=== PATIENT | male | born 1945 | race Caucasian/White ===

== ENCOUNTER 2019-06-29 13:00 | Emergency (ER) | payer MEDICARE ==
[2019-06-29 14:26] LABS: APPEARANCE,URINE Clear (CLEAR); BILIRUBIN,URINE Negative (NEGATIVE); COLOR,URINE Dark Yellow (YELLOW); GLUCOSE, URINE (UA) Negative (NEGATIVE); KETONES,URINE Negative (NEGATIVE); LEUKOCYTE ESTERASE ,URINE Trace (NEGATIVE); NITRATE,URINE Negative (NEGATIVE); OCCULT BLOOD,URINE Negative (NEGATIVE); PH,URINE 5.5 (5.0-8.0); PROTEIN,URINE Negative (NEGATIVE); UROBILINOGEN,URINE 0.2 mg/dL (0.2-1.0)
[2019-06-29 14:44] LABS: BACTERIA,URINE Rare /HPF (None Seen); MUCUS,URINE Few LPF (None Seen); RBC,URINE 0-1 /HPF (0-1); SQUAMOUS EPITHELIAL CELL,UR Rare /HPF (0-2); WBC,URINE 0-1 /HPF (0-1)
== END 2019-06-29 16:46 | disposition home or self-care (01) ==
LOC: EDH 13:00
DX: R33.9 Retention of urine, unspecified (principal); I10 Essential (primary) hypertension; I48.91 Unspecified atrial fibrillation
CPT/HCPCS: 51702; 81001

== ENCOUNTER 2019-08-06 10:00 | Observation (INO) | payer MEDICARE ==
[2019-08-03 11:13] LABS: BASOPHILS % (AUTO) 0.7 % (0.0-5.0); EOSINOPHILS % (AUTO) 2.3 % (0.0-8.0); HEMATOCRIT 44.5 % (42-54); LYMPHOCYTES % (AUTO) 27.9 % (21.0-51.0); MEAN CORPUSCULAR HEMOGLOBIN 29.7 pg (27.0-33.0); MEAN CORPUSCULAR HGB CONC 33.7 g/dL (32.0-36.0); MEAN CORPUSCULAR VOLUME 88.1 fL (79-99); MONOCYTES % (AUTO) 12.5 % (3.0-13.0); NEUTROPHILS % (AUTO) 56.2 % (40.0-77.0); PLATELET COUNT (AUTO) 172 K/uL (130-400); RED BLOOD CELL COUNT(AUTO) 5.05 MIL/uL (4.50-6.20); RED CELL DISTRIBUTION WIDTH 13.6 % (11.0-15.5); WHITE BLOOD COUNT (AUTO) 5.6 K/uL (4.8-10.8)
[2019-08-03 11:22] VITALS: BP 142/79
[2019-08-03 11:31] LABS: CREATININE 0.8 mg/dL (0.5-1.5); POTASSIUM 3.8 mmol/L (3.5-5.1)
[2019-08-03 11:33] LABS: INR 1.79 (0.85-1.15); PROTHROMBIN TIME 18.4 SEC (9.6-11.6)
[2019-08-03 12:18] LABS: APPEARANCE,URINE CLOUDY (CLEAR); BILIRUBIN,URINE NEGATIVE (NEGATIVE); COLOR,URINE YELLOW (YELLOW); GLUCOSE, URINE (UA) NEGATIVE (NEGATIVE); KETONES,URINE NEGATIVE (NEGATIVE); LEUKOCYTE ESTERASE ,URINE MODERATE (NEGATIVE); NITRATE,URINE POSITIVE (NEGATIVE); OCCULT BLOOD,URINE LARGE (NEGATIVE); PH,URINE 5.5 (5.0-8.0); PROTEIN,URINE 100 mg/dL (NEGATIVE); UROBILINOGEN,URINE 0.2 mg/dL (0.2-1.0)
[2019-08-03 13:11] LABS: BACTERIA,URINE Many /HPF (None Seen); CALCIUM OXALATE CRYSTALS,UR Few /LPF (None Seen); SQUAMOUS EPITHELIAL CELL,UR Rare /HPF (0-2); WBC,URINE 51-100 /HPF (0-1)
--- NOTE | 2019-08-03 15:30 | NUR ---
ekg informed dr. ruano of ekg. orders received to call pts pcp in [place] and follow his recommendations in regards to ekg.
--- NOTE | 2019-08-04 16:09 | NUR ---
EKG CALLED DR. Sanam COLBY TO INFORM OF EKG. OFFICE CLOSED, LEFT MESSAGE TO CALL ME BACK.
--- NOTE | 2019-08-05 08:34 | NUR ---
EKG PANTERA FREEMAN ON PHONE. INFORMED OF PTS EKG AND Faxed. SHE WILL INFORM DR. COLBY
--- NOTE | 2019-08-05 08:35 | NUR ---
EKG PANTERA MONTAÑO ON PHONE. STATES PER DR. COLBY, PT CAN PROCEED WITH PLANNED PROCEDURE. NO RECOMMENDATIONS GIVEN ABOUT EKG. DR GARCIA MADE AWARE
--- NOTE | 2019-08-05 08:35 | NUR ---
EKG DR. GARCIA NOTIFIED OF EKG. REQUESTING A RECOMMENDATION FROM DR. COLBY IN REGARDS TO EKG.
--- NOTE | 2019-08-05 17:07 | NUR ---
CALLED DR. ESCOBEDO OFFICE REPORTED ABNORMAL LABS SPOKE WITH CRISTELA PER DR. ESCOBEDO NO NEW ORDERS
[~2019-08-06] VITALS: Ht 188 cm; Wt 130.0 kg
[2019-08-06] VITALS (19 sets, daily range): BP systolic 114–150; BP diastolic 70–91
[2019-08-06] MEDS: CEFTRIAXONE SODIUM 1 GM IVP SCH ×2 (06:00→13:00)
[~2019-08-06 10:00] MED LIST: BIOTIN PO; CYAN100022 SL; DIGO125T71 PO; DILT120T15 PO; GENTAMICIN SULFATE IV SCH; MAGN400T53 PO; MVI PO; SODIUM CHLORIDE 0.9% IV SCH; TAMS-1 PO; WARF-57 PO; WARF7.5T49 PO
--- NOTE | 2019-08-06 10:40 | NUR ---
PERSONAL BELONGINGS pt states wears hearing aides both ears, left hearing aides at home Addendum: 08/06/19 at 1448 by VÍCTOR COY RN RN Amended: Links added.
[2019-08-06] MEDS ORDERED: SODIUM CHLORIDE 0.9% 1000ML 1,000 ML IV ONE (10:48)
[2019-08-06 11:28] LABS: INR 1.14 (0.85-1.15); PARTIAL THROMBOPLASTIN TIME 28.7 SEC (26.3-35.5); PROTHROMBIN TIME 11.9 SEC (9.6-11.6)
[2019-08-06] MEDS ORDERED: MIDAZOLAM HCL 1 MG/ML 2ML VIAL ONE (12:32)
[2019-08-06] MEDS ORDERED: ROCURONIUM 10MG/1ML SYR 10 MG/ML ML ONE ×2 (12:32→14:06)
[2019-08-06] MEDS ORDERED: LIDOCAINE PF 2% 5ML ABBOJECT ONE (12:32)
[2019-08-06] MEDS ORDERED: PROPOFOL 10 MG/ML 20ML VIAL IV ONE (12:32)
[2019-08-06] MEDS ORDERED: FENTANYL CITRATE PF 50 MCG/1 ML 5ML AMP IV ONE (12:32)
[2019-08-06] MEDS ORDERED: DEXAMETHASONE SOD PHOSPHATE 10MG/ML 1ML VIAL ONE (13:18)
[2019-08-06] MEDS ORDERED: ONDANSETRON HCL 4 MG/2 ML VIAL ONE (13:18)
[2019-08-06] MEDS ORDERED: EPHEDRINE SULFATE 50 MG/ML AMPULE ONE (13:19)
[2019-08-06] MEDS ORDERED: GLYCOPYRROLATE 1 MG/5 ML SYRINGE ONE (14:06)
[2019-08-06] MEDS ORDERED: NEOSTIGMINE 5MG/5ML SYR IV ONE (14:08)
[2019-08-06] MEDS: 1/2 NORMAL SALINE 1,000 ML IV SCH (16:50)
[2019-08-06] MEDS: HYDROCODONE/ACETAMINOPHEN 5/325 MG TAB PO PRN ×2 (16:51→22:02)
[2019-08-06] MEDS ORDERED: DILTIAZEM HCL 120 MG CAP.SR.24H PO SCH (21:00)
[2019-08-07] MEDS ORDERED: PHARMACY COMMUNICATION MISC SCH ×2 (00:45→09:00)
[2019-08-07] MEDS ORDERED: ONDANSETRON HCL 4 MG/2 ML VIAL IVP PRN (00:45)
[2019-08-07] MEDS: HYDROCODONE/ACETAMINOPHEN 5/325 MG TAB PO PRN ×3 (02:02→12:42)
[2019-08-07 03:15] VITALS: BP 131/71
[2019-08-07] MEDS ORDERED: OPIUM/BELLADONNA ALKALOIDS 1 EACH SUPP.RECT RC PRN (04:00)
[2019-08-07] MEDS: 1/2 NORMAL SALINE 1,000 ML IV SCH (05:42)
[2019-08-07 08:00] VITALS: BP 119/61
[2019-08-07] MEDS ORDERED: DIGOXIN 125 MCG TABLET PO SCH (09:00)
[2019-08-07] MEDS ORDERED: BACITRACIN 28.4 GM OINT TP SCH (09:00)
[2019-08-07] MEDS ORDERED: CEFTRIAXONE SODIUM 1 GM IVP SCH (10:00)
[2019-08-07 11:00] VITALS: BP 119/70
--- NOTE | 2019-08-07 12:27 | NUR ---
[id number] patient signed IM Letter, I faxed IM Letter to [phone] and placed in chart under consent tab
--- NOTE | 2019-08-07 13:07 | NUR ---
I HAVE CALLED DR BARRY OFFICE IN REGARDS TO PT'S PLAN D/C HOME TODAY; PENDING DR ESCOBEDO TO CALL ME BACK ; PT IS PASSING YELLOW TO PINK URINE VIA CBI AT A VERY SLOW RATE AT THIS TIME;
--- NOTE | 2019-08-07 13:49 | NUR ---
INITIAL Patient lives with spouse, Jessica Coleman, . Patient is here on vacation. No home services or DME. Patient is independent and drives. No local PCP. Pharmacy is [facility] [address]. DCP is home. Addendum: 08/07/19 at 1351 by CRISTY MARTÍNEZ SS Amended: Links added.
--- NOTE | 2019-08-07 14:33 | NUR ---
PT AND STATED UNDERSTANDING OF ALL D/C INSTRUCTIONS ON AFTER CARE AFTER GREEN LIGHT LASER PROSTATE TREATMENT, AND HOW TO USE AND CARE FOR A COLEY CATHETOR; LEG BAG APPLIED AND PT STATED UNDERSTANDING OF HOW TO USE IT AND TO REPORT TO MD IF NOT PASSING URINE; IV ACCESS REMOVED; PT TO FOLLOW UP WITH DR ESCOBEDO SATURDAY FOR CATHETOR REMOVAL
== END 2019-08-07 14:48 | disposition home or self-care (01) ==
LOC: DAH 10:00 → 4AH 10:01 → DAH 10:01
PROVIDERS: ADMIT Urology; ATTEND Urology
DX: N40.1 Benign prostatic hyperplasia with lower urinary tract symptoms (principal); R33.8 Other retention of urine
CPT/HCPCS: 36415 ×2; 52648; 71045; 80048; 81001; 82948; 85025; 85610 ×2; 85730; 87077; 87088; 87186; 93005; 96365; 96375; A4215; A4221; A4222; A4223; A4354; A4600; A4663; C1758; G0378 ×23; J0696 ×2; J1100; J1580; J2001; J2250; J2405; J2704; J2710; J3010; J3490 ×2; J7030 ×2; J7120

== ENCOUNTER 2019-08-09 12:54 | Emergency (ER) | payer MEDICARE ==
[~2019-08-09 12:54] MED LIST changes: -GENTAMICIN SULFATE IV SCH; -SODIUM CHLORIDE 0.9% IV SCH
[2019-08-09 14:29] LABS: APPEARANCE,URINE Clear (CLEAR); BILIRUBIN,URINE Negative (NEGATIVE); COLOR,URINE Yellow (YELLOW); GLUCOSE, URINE (UA) Negative (NEGATIVE); KETONES,URINE Negative (NEGATIVE); LEUKOCYTE ESTERASE ,URINE Small (NEGATIVE); NITRATE,URINE Negative (NEGATIVE); OCCULT BLOOD,URINE Large (NEGATIVE); PROTEIN,URINE POS 1+ mg/dL (NEGATIVE); UROBILINOGEN,URINE 0.2 mg/dL (0.2-1.0)
[2019-08-09 15:07] LABS: BASOPHILS % (AUTO) 0.4 % (0.0-5.0); EOSINOPHILS % (AUTO) 1.7 % (0.0-8.0); HEMATOCRIT 39.8 % (42-54); LYMPHOCYTES % (AUTO) 17.2 % (21.0-51.0); MEAN CORPUSCULAR HEMOGLOBIN 29.9 pg (27.0-33.0); MEAN CORPUSCULAR HGB CONC 34.2 g/dL (32.0-36.0); MEAN CORPUSCULAR VOLUME 87.5 fL (79-99); MONOCYTES % (AUTO) 14.7 % (3.0-13.0); NEUTROPHILS % (AUTO) 65.7 % (40.0-77.0); PLATELET COUNT (AUTO) 147 K/uL (130-400); RED BLOOD CELL COUNT(AUTO) 4.55 MIL/uL (4.50-6.20); RED CELL DISTRIBUTION WIDTH 14.3 % (11.0-15.5)
[2019-08-09 15:13] LABS: BACTERIA,URINE Moderate /HPF (None Seen); MUCUS,URINE Few LPF (None Seen); SQUAMOUS EPITHELIAL CELL,UR 0-2 /HPF (0-2)
[2019-08-09 15:19] LABS: CREATININE 2.1 mg/dL (0.5-1.5); POTASSIUM 4.1 mmol/L (3.5-5.1)
== END 2019-08-09 15:49 | disposition home or self-care (01) ==
LOC: EDH 12:54
DX: T83.038A Leakage of other urinary catheter, initial encounter (principal); I10 Essential (primary) hypertension; I48.91 Unspecified atrial fibrillation
CPT/HCPCS: 36415; 80048; 81001; 85025